=== PATIENT | male | born 1975 | race African-American/Black ===

== ENCOUNTER 2022-05-23 23:42 | Emergency (ER) | payer OTHER ==
[~2022-05-23] VITALS: Ht 188 cm; Wt 124.7 kg
--- NOTE | 2022-05-23 23:43 | NUR ---
[id number]/[employer] FROM [facility] FOR HIGH BP 200/100 AT TRIAGE 180/120 C/O HEADACHE. OK TO BOOK. PT AWAKE A/OX3. TOLERATING R/A WELL WITH NO RESP DISTRESS OR SOB. SAFETY MEASURES IN PLACE.
--- NOTE | 2022-05-23 23:56 | NUR ---
PT TAKEN TO CT VIA BRA
[2022-05-24] MEDS ORDERED: CLONIDINE HCL 0.1 MG TABLET PO ONE
[2022-05-24] MEDS ORDERED: ACETAMINOPHEN ES 500 MG TABLET PO ONE
[2022-05-24] MEDS ORDERED: ACETAMINOPHEN ES 500 MG TABLET ONE (00:04)
[2022-05-24] MEDS ORDERED: CLONIDINE HCL 0.1 MG TABLET ONE (00:04)
--- NOTE | 2022-05-24 00:05 | NUR ---
BACK FROM CT
--- NOTE | 2022-05-24 00:05 | NUR ---
PT RETURNED TO ER BED [address]
[2022-05-24] MEDS ORDERED: AMLO-212 PO (01:46)
[2022-05-24 02:03] VITALS: BP 191/115
--- NOTE | 2022-05-24 02:03 | NUR ---
Patient discharged to [employer] custody in stable condition. RX Written and verbal after care instructions given. Patient verbalizes understanding of instruction. PT ambulatory with a steady gait
== END 2022-05-24 02:04 ==
LOC: ER 23:44
DX: I10 Essential (primary) hypertension (principal); R51.9 Headache, unspecified; Z60.2 Problems related to living alone; Z79.899 Other long term (current) drug therapy
CPT/HCPCS: 70450-TC